=== PATIENT | female | born 1945 | race Caucasian/White ===

== ENCOUNTER → 2016-12-31 | Outpatient (CLI) | payer OTHER, BC | LOC: MMPC 11:11 | PROVIDERS: ATTEND Surgery | DX: C50.411 Malignant neoplasm of upper-outer quadrant of right female breast (principal) | CPT/HCPCS: 99213; G0463 ==

== ENCOUNTER 2017-01-02 10:43 | Day surgery (SDC) | payer OTHER, BC ==
[~2017-01-02 10:43] MED LIST: LIDOCAINE HCL 1%/EPI 1:100,000 - 20 ML VIAL ONE; LIDOCAINE W/ SODIUM BICARB 0.5 ML SYR ONE; Lactated Ringers 1,000 ML PRIMARY IV ONE; SODIUM BICARBONATE 8.4% - 50 ML VIAL ONE
[2017-01-02] MEDS ORDERED: fentaNYL Inj 100 MCG/2 ML VIAL ONE (11:28)
[2017-01-02] MEDS ORDERED: MIDAZOLAM 5 MG/1 ML ONE (11:28)
--- NOTE | 2017-01-02 12:30 | GEN.OPNOTE ---
Operative Note Surgery Date: 01/02/17 Preoperative Diagnosis: Right breast cancer. Mediport no longer needed. Postoperative Diagnosis: Same. Procedure: Removal left subclavian Mediport. Surgeon: Oleksandr Miller MD Anesthesia Provider: Felipe Ponce CRNA Anesthesia Type: Local (Oleksandr Miller. 1% Xylocaine with epinephrine and sodium bicarbonate.), MAC Estimated Blood Loss (mL): 2 Fluids: 600 mL of crystalloid. Pathology: No specimens. Indications: Mediport no longer needed. Patient is finish chemotherapy. Patient desires removal. Findings: No abnormal findings. Complications: None. Operative Summary: Patient was taken to the operating suite and placed on the operating table in the supine position. Following the induction of adequate IV sedation the area was infiltrated with 1% Xylocaine with epinephrine and bicarbonate. An incision was made at the old incision site. It was carried down through the subcutaneous tissue to the Mediport. The scar tissue around the MediPort was freed up. The catheter was identified. The scar tissue surrounding it was incised. Gentle traction allowed complete removal of the MediPort. Pressure was held at the incision site as well as the entrance site into the vein for 5 minutes. Hemostasis was assured. The deep dermis was closed with inverted interrupted 4-0 Monocryl sutures. The skin was closed with running subcuticular 4-0 Monocryl followed by Mastisol, Steri-Strips, and an appropriate dressing. The patient tolerated the procedure well. There were no complications. She was taken to outpatient surgery in stable condition. All counts were correct.
[2017-01-02 13:56] VITALS: RESP 14; TEMP 97
== END 2017-01-02 13:25 | disposition home or self-care (01) ==
LOC: SDSC 10:43
PROVIDERS: ATTEND Surgery
DX: Z95.828 Presence of other vascular implants and grafts (principal); C50.411 Malignant neoplasm of upper-outer quadrant of right female breast
CPT/HCPCS: 36590 ×2; J2704; J3010; J2250; J7120

== ENCOUNTER → 2017-01-04 | Outpatient (CLI) | payer OTHER, BC | LOC: LAB 13:17 | PROVIDERS: ATTEND Nurse Practitioner | DX: M81.0 Age-related osteoporosis without current pathological fracture (principal) | CPT/HCPCS: 36415; 82306 ==

== ENCOUNTER → 2017-02-11 | Outpatient (CLI) | payer OTHER, BC ==
[2017-02-11 14:33] LABS: BASOPHILS # (AUTO) 0.03 10*3/UL; BASOPHILS % (AUTO) 0.6 % (0-1); EOSINOPHILS % (AUTO) 2.6 % (0-8); HEMATOCRIT 38.8 % (37.0-47.0); HEMOGLOBIN 12.8 g/dL (12.0-16.0); IMM GRAN % (AUTO) 0.2 % (0-5); IMM GRAN# (AUTO) 0.01 10*3/UL; LYMPHOCYTES # (AUTO) 0.98 10*3/uL; MEAN CORPUSCULAR HEMOGLOBIN 27.5 PG (27-31); MEAN PLATELET VOLUME 9.3 FL (7.4-12.2); MONOCYTES # (AUTO) 0.52 10*3/UL (0.3-0.8); MONOCYTES % (AUTO) 10.6 % (5-15); NEUTROPHILS # (AUTO) 3.24 10*3/UL; RDW COEFFICIENT OF VARIATION 14.8 % (11.5-14.5); RED BLOOD COUNT 4.65 10^6/uL (4.20-5.40); WHITE BLOOD COUNT 4.91 10^3/uL (4.8-10.8)
[2017-02-11 14:34] LABS: PLATELET MORPHOLOGY COMMENT NORMAL MORPHOLOGY (NORM)
[2017-02-11 14:42] LABS: ASPARTATE AMINO TRANSFERASE 24 IU/L (8-39); BILIRUBIN,TOTAL 0.4 mg/dL (0.3-1.2); BLOOD UREA NITROGEN 18 mg/dL (7-22); CHLORIDE 107 meq/L (98-112); CREATININE 0.9 mg/dL (0.50-1.20); EST GLOMERULAR FILTRATION > 60 (>60 ml/min/1.73m(2)); GLUCOSE 115 mg/dL (78-110); SODIUM 141 meq/L (135-145); TOTAL PROTEIN 7.6 g/dL (6.1-8.0)
== END ==
LOC: LAB 14:22
PROVIDERS: ATTEND Internal Medicine
DX: C50.811 Malignant neoplasm of overlapping sites of right female breast (principal)
CPT/HCPCS: 36415; 80053; 85025; 86300

== ENCOUNTER 2018-03-18 10:32 | Inpatient (IN) ==
[~2018-03-18 10:32] MED LIST changes: -LIDOCAINE HCL 1%/EPI 1:100,000 - 20 ML VIAL ONE; +LIDOCAINE W/ SODIUM BICARB 0.5 ML SYR SUBD ONE; -SODIUM BICARBONATE 8.4% - 50 ML VIAL ONE; +ceFAZolin Inj 2gm (Premix) 2 GM/50 ML BAG IV ONE
[2018-03-18] MEDS ORDERED: MIDAZOLAM 5 MG/1 ML ONE (10:46)
[2018-03-18] MEDS ORDERED: fentaNYL Inj 250 MCG/5 ML VIAL ONE (10:46)
[2018-03-18] MEDS ORDERED: LIDOCAINE MPF 2% - 5 ML (20 MG/1 ML) ONE (10:47)
[2018-03-18] MEDS ORDERED: PROPOFOL 10 MG/1 ML (200 MG/20 ML) VIAL IV ONE (10:48)
[2018-03-18] MEDS: Lactated Ringers 1,000 ML PRIMARY IV SCH ×3 (10:53→18:56)
[2018-03-18] MEDS ORDERED: EPINEPHrine Inj (1:1,000) 1 mg/ml amp ONE (11:38)
--- NOTE | 2018-03-18 11:55 | CRNA.PROGR ---
Anesthesia Time - - Start date: 03/18/18 End date: 03/18/18 - Procedure/Recovery Time Anesthesia : Time In: 12:18 Anesthesia : Time Out: 15:17 Anesthesia : Total Time: 179 - Block Time PreOp Block : Time In: 12:03 PreOp Block : Time Out: 12:07 PreOp Block : Total Time: 4 - Total Anesthesia Time Total Anesthesia Time (minutes): 183 - Other Physical Status: P3 (aaortic stenosis, H/O PE, GERD,) Anesthesia Type: General Anesthesia : ET
[2018-03-18] MEDS ORDERED: ESMOLOL HCL 100 MG/10 ML VIAL ONE (12:15)
[2018-03-18] MEDS ORDERED: ROCURONIUM 10 MG/1 ML - 5 ML VIAL IVP ONE (12:16)
[2018-03-18] MEDS ORDERED: ePHEDrine Inj 50 MG/ML AMP ONE (12:43)
[2018-03-18] MEDS ORDERED: Sodium Chloride 0.9% vial 20 ML ONE ×2 (13:35→14:15)
[2018-03-18] MEDS ORDERED: BACITRACIN 50,000 UNIT VIAL IRRIG ONE ×2 (13:35→14:15)
[2018-03-18] MEDS ORDERED: Lactated Ringers 1,000 ML PRIMARY IV ONE (14:49)
--- NOTE | 2018-03-18 15:10 | ORTHO.OP ---
- - -: See Dictated Operative Report Procedure Codes - Upper Extremity Procedures Primary Wrist/Hand/Elbow Procedure Code: Other CPT Code(s) (35359 and 31006 Raysa ABDUL assisted)
--- NOTE | 2018-03-18 15:22 | CRNA.PROCE ---
Nerve Block Documentation - - Safety Measures: Time Out Taken, Site Verified - - Type of Nerve Block Used: Right Interscalene Block (Anaqlgesia block for post humeral nailing.) Position for Nerve Block: Supine Moniters Used During Block: EKG, SPO2, NIBP Oxygen Supplemented: Yes Sedation Used - Enter Amount in Comment Field [ANES.SEDAT]: Midazolam (mg): Yes (2), Fentanyl (mcg): Yes (100) Skin Prep Used: ChloroPrep (Twice) Technique: Nerve Stimulator Nerve Block Needle Used: 40 mm ProBlk II Stimulation Hz: 1 Stimulation Staring mA: 1.6 Stimulation Ending mA: 0.6 Local Anesthetic - Enter Amt in Comment Field [ANES.LOCNB]: 0.5 % Bupivacaine Plain (mL): Yes (20 ml), 2 % Xylocaine with Epinephrine 1:200,000 (mL): Yes (20 ml) Additives to Nerve Blocks: Dexamethasone (mg): Yes (10) - - PreOp Block : Time In: 12:03 PreOp Block : Time Out: 12:07 Anesthesia Time - Block Time PreOp Block : Time In: 12:03 PreOp Block : Time Out: 12:07 - Other Weight: 83.461 kg Height: 5 ft 4 in Body Mass Index (BMI): 31.6
--- NOTE | 2018-03-18 15:23 | CRNA.PROGR ---
Post Anesthesia Phase II - Post Anesthesia Phase II Patient Stable and Discharged To: Med/Surg Care Assumed By Surgeon: Primitivo Pena MD Temperature: 97.0 F Pulse Rate: 81 Respiratory Rate: 18 Blood Pressure: 127/59 Pulse Ox: 95 Total Onesimo Score at Discharge: 9 Post Anesthesia Discharge Criteria Met: Yes
--- NOTE | 2018-03-18 15:23 | CRNA.PROGR ---
Anesthesia Recovery Phase I - Post Anesthesia Evaluation Patient's Condition on Arrival in Phase I: Stable Patient's Condition on Arrival in Phase II: Stable Pain Level: 2
[2018-03-18] MEDS ORDERED: LIDOCAINE W/ SODIUM BICARB 0.5 ML SYR SUBD PRN (15:27)
[2018-03-18] MEDS ORDERED: Ondansetron ODT Tab 8 MG TAB PO PRN (15:27)
[2018-03-18] MEDS ORDERED: HYDROmorphone 2 MG/1 ML ONE (15:27)
[2018-03-18] MEDS ORDERED: NORMAL SALINE 10 ML SYRINGE FLUSH IVP PRN ×2 (15:27→16:00)
[2018-03-18] MEDS ORDERED: ATROPINE SULFATE 0.4 MG/1 ML VIAL IVP PRN (15:27)
[2018-03-18] MEDS ORDERED: fentaNYL Inj 100 MCG/2 ML VIAL IVP PRN (15:27)
[2018-03-18] MEDS ORDERED: ONDANSETRON 4 MG/2 ML VIAL IVP PRN ×2 (15:27→16:00)
[2018-03-18] MEDS: HYDROmorphone 2 MG/1 ML IVP PRN ×2 (15:28→15:40)
[2018-03-18] MEDS ORDERED: Lactated Ringers 1,000 ML PRIMARY IV SCH (15:30)
[2018-03-18] MEDS ORDERED: HYDROmorphone 2 MG/1 ML IVP PRN (16:00)
--- NOTE | 2018-03-18 16:59 | CONSULT ---
Consult Note - Consult Consult Date: 03/18/18 Reason for Consult: PostOp Consulation : Ortho Requesting Physician: Dr. Pena Primary Care Provider: Danyell Vela APRN HPI - History of Present Illness Date of Service: 03/18/18 Time of Service: 16:51 Chief Complaint: Right arm pain History of Present Illness: This very pleasant 72-year-old female with a history of breast cancer, stage III at time of diagnosis back in 2014, pulmonary emboli, and a heart murmur. She comes in stating that over the last 2 weeks or so she's had some right arm pain. She had a PET scan done and mentioned it to her oncology team and they thought perhaps she had a shoulder impingement. They sent her to Dr. Pena and he found a pathologic fracture. The patient had metastatic disease in her right humerus. She went to surgery today for open reduction and internal fixation of this and is now postop today. Because of the patient's pulmonary emboli in 2014, she has been on eliquis to try and prevent another event. I spoke to the patient about this, and also discussed Lovenox and its superiority data over Coumadin in the setting of venous thrombi embolism or pulmonary emboli but she states to me that she does not want to go on that. She had some experience with Lovenox shots with her prior diagnosis of pulmonary emboli. Patient would like to remain on her eliquis. Postoperatively, her pain is well controlled and her right arm. She has no chest pain, shortness breath, nausea or vomiting. She will be starting chemotherapy and radiation over the next week. Past Medical History Medical History: 1. Right-sided breast cancer, with metastatic disease now on the right arm, spine and hip. On tamoxifen. We'll be resuming chemotherapy and radiation therapy over this next week. 2. Pulmonary emboli. 3. History of aortic stenosis, mild Surgical History: 1. Right breast cancer surgery. 2. Mediport. and subsequent removal. Pertinent Family History: Her mother had leukemia. Father is alive at age 99. Past Social History: Does not smoke or drink. . Has healthy children. Tobacco Use: Never Smoker In the Past 12 Months, Have Used or Abuse Any of the Following Substance: None Alcohol Use: None Review of Systems - Constitutional Constitutional: REPORTS: Other (Denies any fevers or chills. Denies any weight loss.) - Respiratory Respiratory: REPORTS: Negative System Review - Cardiovascular Cardiovascular: REPORTS: Negative System Review - Gastrointestinal Gastrointestinal / Abdominal: REPORTS: Negative System Review - Genitourinary Genitourinary: REPORTS: Negative System Review - Musculoskeletal Musculoskeletal: REPORTS: Other (Pain in lower back.) Medication / Allergies Home Medications: Home Medications 3 Medication Instructions Recorded Confirmed Type Tamoxifen Citrate 20 mg PO DAILY tab 01/10/16 03/18/18 History Multivitamin [Daily Ralph] 1 tab PO DAILY tab 12/31/16 03/18/18 History escitalopram 10 mg tablet 1 tab PO DAILY #90 tab 01/21/18 03/18/18 Rx apixaban 5 mg tablet 5 mg PO QDAY #60 tab 03/03/18 03/18/18 Rx hydrocodone 5 mg-acetaminophen 325 See Label Instructions PO Q6-8H 03/06/18 Rx mg tablet PRN #50 tab Allergies/Adverse Reactions: Allergies 3 Allergy/AdvReac Type Severity Reaction Status Date / Time Auremycin Allergy Intermediate HIVES Uncoded 09/27/17 13:42 Limes AdvReac Mild NAUSEA Uncoded 09/27/17 13:42 Exam - Vitals Vital Signs: Vital Signs Temperature 96.8 F Temperature Source Temporal Artery Scan Pulse Rate [Pulse Oximeter] 108 Pulse Rate [Apical] 105 Pulse Rate 110 Respiratory Rate 16 Blood Pressure [Left Arm] 104/45 Blood Pressure 97/48 Pulse Ox 94 Oxygen Flow Rate 2 Oxygen Delivery Method Nasal Cannula Height 5 ft 4 in Weight 184 lb - General General Appearance: No Acute Distress, Cooperative - Head Head Exam: Normal Inspection, Normocephalic, Atraumatic - Eye Eye Exam: POSITIVE: No Scleral Icterus - ENT ENT Exam: POSITIVE: Mucous Membranes Moist - Respiratory Respiratory Exam: POSITIVE: Clear to Auscultation - Bilaterally, Breathing Non Labored - Cardiovascular Cardiovascular Exam: POSITIVE: RRR, No Clicks, No Gallops, No Rubs, Systolic Murmur, No JVD - GI/Abdominal GI/Abdominal Exam: POSITIVE: Normal Bowel Sounds, Non Tender, Non Distended, Soft - Extremities Extremities Exam: POSITIVE: No Clubbing Present, No Edema Present, No Cyanosis Present Additional Extremities Exam Details: Right upper extremity in sling. - Neurological Neurological Exam: POSITIVE: Alert, Oriented x 3, No Facial Droop, Speech Intact / Clear Results - Labs Additional Lab Results: 03/31/13 02/13/18 02/13/18 09:00 10:24 10:24 WBC 4.02 L Hgb 12.3 RDW 13.5 Plt Count 295 Sodium 145 Potassium 4.4 Chloride 107 Carbon Dioxide 24 Anion Gap 14 BUN 21 Creatinine 0.9 Glucose 94 Calcium 9.3 Total Bilirubin 0.4 AST 33 ALT 35 Alkaline Phosphatase 82 CA 27-29 02/13/18 10:24 WBC Hgb RDW Plt Count Sodium Potassium Chloride Carbon Dioxide Anion Gap BUN Creatinine Glucose Calcium Total Bilirubin AST ALT Alkaline Phosphatase CA 27-29 33.9 Assessment and Plan - Patient Problems (1) Aortic stenosis, mild Current Visit: Yes Status: Acute Code(s): I35.0 - Nonrheumatic aortic (valve ) stenosis (2) History of pulmonary embolism Current Visit: Yes Status: Acute Code(s): Z86.711 - Personal history of pulmonary embolism (3) Breast cancer, right Current Visit: Yes Status: Acute Priority: High Code(s): C50.911 - Malignant neoplasm of unspecified site of right female breast Qualifiers: Breast location: upper outer quadrant of breast Qualified Code(s): C50.411 - Malignant neoplasm of upper-outer quadrant of right female breast - Assessment / Plan Additional Assessment/Plan Details: In terms of aortic stenosis, continue home medications. At this point. One could consider getting an echocardiogram prior to chemotherapy, but as I do not know the regimen, I'll defer any ordering of this to her oncology team. In terms of her DVT/pulmonary embolism prophylaxis, I spoke with orthopedics regarding this issue. I think the patient can resume her eliquis tomorrow by the afternoon. It slated to start at 3 PM. She does take it twice a day and I' ll make sure that it's reflected as such in the chart. The patient may need brain imaging to make sure there is no brain metastases, but given the patient already had a pulmonary emboli in the setting of breast cancer, I think it's very important to continue to try to prevent another one. She does not want to go on Lovenox. Her was present for that discussion as well. We did discuss CODE STATUS. I went through this very carefully with the patient and her present. They both agree that the patient is DO NOT RESUSCITATE. She states she has power of trade mark attorney in place. Thank you for this consultation. We will continue to help advise and support medical issues throughout the hospital stay.
[2018-03-18] MEDS: HYDROcodone-APAP 7.5 MG-325 MG TABLET PO PRN ×2 (18:57→22:29)
[2018-03-18] MEDS: ceFAZolin Inj 2gm (Premix) 2 GM/50 ML BAG IV SCH (20:09)
[2018-03-18 23:58] VITALS: RESP 16
[2018-03-19] MEDS: HYDROcodone-APAP 7.5 MG-325 MG TABLET PO PRN ×3 (04:19→13:02)
[2018-03-19] MEDS: ceFAZolin Inj 2gm (Premix) 2 GM/50 ML BAG IV SCH (04:20)
[2018-03-19 04:40] LABS: BASOPHILS # (AUTO) 0.01 10*3/UL; BASOPHILS % (AUTO) 0.2 % (0-1); EOSINOPHILS # (AUTO) 0.03 10*3/UL; EOSINOPHILS % (AUTO) 0.5 % (0-8); Hematocrit [HCT] 30.8 % (37.0-47.0); Hemoglobin [HGB] 10.1 g/dL (12.0-16.0); LYMPHOCYTES # (AUTO) 1.23 10*3/uL; MEAN CORPUSCULAR HEMOGLOBIN 27.7 PG (27-31); MEAN CORPUSCULAR HGB CONC 32.8 g/dL (33-37); MEAN CORPUSCULAR VOLUME 84.6 FL (81-99); MEAN PLATELET VOLUME 9.1 FL (7.4-12.2); MONOCYTES # (AUTO) 0.57 10*3/UL (0.3-0.8); MONOCYTES % (AUTO) 8.6 % (5-15); NEUTROPHILS % (AUTO) 71.9 % (50-80); RED BLOOD COUNT 3.64 10^6/uL (4.20-5.40)
[2018-03-19 04:50] LABS: BLOOD UREA NITROGEN 15 mg/dL (7-22); BUN/CREATININE RATIO 18.75 (6-20)
[2018-03-19 04:54] LABS: PLATELET MORPHOLOGY COMMENT NORMAL MORPHOLOGY (NORM); RBC MORPHOLOGY COMMENT NORMAL MORPHOLOGY (NORM); WBC MORPHOLOGY COMMENT NORMAL MORPHOLOGY (NORM)
[2018-03-19] MEDS: Lactated Ringers 1,000 ML PRIMARY IV SCH (05:33)
--- NOTE | 2018-03-19 07:48 | ORTHO.PROG ---
Last Taken Vital Signs: Vital Signs - Last Taken Temperature 98.2 F 03/19/18 06:58 Pulse Rate 85 03/19/18 06:58 Respiratory Rate 16 03/19/18 06:58 Blood Pressure 100/41 03/19/18 06:58 Pulse Ox 91 03/19/18 06:58 Subjective: Patient notes pain in the arm but otherwise doing well Objective: Motor and sensory exam is nonfocal. Good pulses brisk refill dressings are all dried. Limited motion of the shoulder secondary to pain. Laboratory Results 03/19/18 03/19/18 Range/Units 04:34 04:34 WBC 6.66 (4.8-10.8) 10^3/uL RBC 3.64 L (4.20-5.40) 10^6/uL Hgb 10.1 L (12.0-16.0) g/dL Hct 30.8 L (37.0-47.0) % MCV 84.6 (81-99) FL MCH 27.7 (27-31) PG MCHC 32.8 L (33-37) g/dL RDW Std Deviation 45.8 (39-50) fL RDW Coeff of Arcadio 15.2 H (11.5-14.5) % Plt Count 287 (140-350) 10*3/uL MPV 9.1 (7.4-12.2) FL Immature Gran % (Auto) 0.3 (0-5) % Neut % (Auto) 71.9 (50-80) % Lymph % (Auto) 18.5 (10-50) % Garvin % (Auto) 8.6 (5-15) % Eos % (Auto) 0.5 (0-8) % Baso % (Auto) 0.2 (0-1) % Immature Gran # (Auto) 0.02 10*3/UL Neut # (Auto) 4.80 10*3/UL Lymph # (Auto) 1.23 10*3/uL Garvin # (Auto) 0.57 (0.3-0.8) 10*3/UL Eos # (Auto) 0.03 10*3/UL Baso # (Auto) 0.01 10*3/UL WBC Morphology Comment Normal morphology (NORM) Plt Morphology Comment Normal morphology (NORM) RBC Morph Comment Normal morphology (NORM) Sodium 139 (135-145) meq/L Potassium 3.9 (3.8-5.2) meq/L Chloride 101 (98-112) meq/L Carbon Dioxide 26 (23-33) meq/L Anion Gap 12 (5-20) BUN 15 (7-22) mg/dL Creatinine 0.8 (0.50-1.20) mg/dL BUN/Creatinine Ratio 18.75 (6-20) Glucose 97 (78-110) mg/dL Calculated Osmolality 288.0 (267-292) mOsm/kg Calcium 8.6 L (8.7-10.7) mg/dL Vital Signs (24 hrs) Temp Pulse Pulse Pulse Resp BP BP 03/19/18 06:58 98.2 F 85 16 100/41 03/19/18 04:39 98.2 F 86 16 107/47 03/19/18 00:58 03/18/18 23:57 97.6 F 89 16 100/50 03/18/18 20:30 97.0 F 111 H 20 120/55 03/18/18 17:40 98.6 F 107 H 17 88/43 03/18/18 17:00 98.4 F 102 H 17 101/42 03/18/18 16:14 96.8 F 105 H 108 H 16 104/45 03/18/18 15:56 97/48 03/18/18 15:54 110 H 0 L 03/18/18 15:52 109 H 10 L 03/18/18 15:50 98.0 F 100 16 113/60 03/18/18 15:48 108 H 21 03/18/18 15:46 98.0 F 109 H 18 116/61 03/18/18 15:44 107 H 9 L 116/61 03/18/18 15:42 109 H 12 03/18/18 15:40 111 H 0 L 122/68 03/18/18 15:38 110 H 14 03/18/18 15:36 110 H 12 131/71 03/18/18 15:34 98.1 F 110 H 18 131/71 03/18/18 15:32 112 H 15 03/18/18 15:30 97.9 F 117 H 20 137/75 03/18/18 15:28 115 H 23 03/18/18 15:26 97.7 F 113 H 20 141/74 03/18/18 15:24 117 H 19 141/74 03/18/18 15:23 97.0 F 81 18 127/59 03/18/18 15:22 118 H 58 H 03/18/18 15:20 97.8 F 122 H 20 132/79 18 15:18 123 H 34 H 03/18/18 15:16 97.8 F 122 H 24 124/77 03/18/18 15:14 125 H 03/18/18 15:13 123 H 03/18/18 10:42 97.0 F 81 18 127/59 Pulse Ox 03/19/18 06:58 91 03/19/18 04:39 95 18 00:58 93 03/18/18 23:57 94 03/18/18 20:30 95 18 17:40 96 03/18/18 17:00 96 03/18/18 16:14 94 03/18/18 15:56 03/18/18 15:54 96 18 15:52 96 03/18/18 15:50 96 18 15:48 97 18 15:46 95 18 15:44 96 18 15:42 96 18 15:40 97 18 15:38 97 18 15:36 97 18 15:34 96 18 15:32 97 18 15:30 99 18 15:28 99 18 15:26 98 18 15:24 98 18 15:23 95 18 15:22 98 18 15:20 98 18 15:18 94 18 15:16 97 18 15:14 96 18 15:13 18 10:42 95 Assessment: Right humeral nailing and biopsy right humerus with metastatic breast carcinoma Plan: Evaluation by occupational therapy for mobilization of shoulder and arm as well as mobilizing the patient. We'll see how she does this morning without if she is doing well we can consider discharging her hopefully some time today in the afternoon. I will recheck her this afternoon.
[2018-03-19] MEDS ORDERED: ESCITALOPRAM 10 MG TABLET PO SCH (09:00)
[2018-03-19] MEDS ORDERED: Apixaban 5 MG TABLET PO SCH ×2 (09:00→15:00)
[2018-03-19] MEDS ORDERED: TAMOXIFEN CITRATE 20 MG PO SCH (09:00)
[2018-03-19] MEDS ORDERED: Multivitamin Tab 1 TAB PO SCH (09:00)
[2018-03-19] MEDS ORDERED: CALCIUM CARBONATE 500 MG (TUMS) CHEWABLE TABLET PO PRN (11:23)
[2018-03-19 11:58] VITALS: BP 94/42; TEMP 97.6; O2SAT 92
--- NOTE | 2018-03-19 13:47 | DCSUMMARY ---
Hospitalization Summary Admit Date: 03/18/2018 Discharge Date: 03/19/18 Primary Diagnosis:: right humerus pathologic fracture. Secondary Diagnosis:: Metastatic breast cancer Hospital Course: This very pleasant 72-year-old female that was admitted for open reduction and internal fixation and bone biopsy of a right humeral midshaft fracture with tumor. This is metastatic breast cancer. Patient had surgery performed by Dr. Pena. See his note for further details of the procedure. Postprocedure, the hospital service was involved in the patient's care to help address history of prior pulmonary emboli, anticoagulant management, in the setting of the surgery. The patient is on Eliquis with her oncologist. I discussed with her that Lovenox may be the best drug of choice given that her cancer still present, but she does not want to go on Lovenox she prefers to stay on Eliquis. This was despite disclosure that Lovenox has superior clinical data versus Coumadin in prevention of blood clots (DVT/PE) in patients with malignancy. Postoperatively, the patient did well. Her pain was controlled with hydrocodone orally. She will be working with physical therapy as well. She will resume chemotherapy and a Mediport and radiation per oncology over this next week. No complaints of chest pain or shortness of breath. Assessment and Plan: 1. As per discharge assessments noted 2. Disposition: Patient is discharged home. 3. Condition on discharge, stable and improved. 4. Diet: regular diet 5. Activities: resume normal activities, with right arm restrictions and therapy as prescribed by orthopedics 6. Follow-Up: 1. Primary care provider in one week 2. 7. Medications at the Time of Discharge: Home Medications 3 Medication Instructions Recorded Confirmed Type Multivitamin [Daily Ralph] 1 tab PO DAILY tab 12/31/16 03/18/18 History escitalopram 10 mg tablet 1 tab PO DAILY #90 tab 01/21/18 03/18/18 Rx apixaban 5 mg tablet 5 mg PO QDAY #60 tab 03/03/18 03/18/18 Rx Hydrocodone/Acetaminophen See Label Instructions PO Q6H PRN 03/19/18 Rx [Hydrocodone-Acetamin 5-325 mg] #60 tab 8. Time, care, counseling and coordination of care for this discharge is less than 30 minutes. Exam - Vitals Vital Signs: Vital Signs Temperature 97.6 F Temperature Source Temporal Artery Scan Pulse Rate [Pulse Oximeter] 80 Pulse Rate [Apical] 105 Pulse Rate 110 Respiratory Rate 16 Blood Pressure [Left Arm] 94/42 Blood Pressure 97/48 Pulse Ox 92 Oxygen Flow Rate 2 Oxygen Delivery Method Room Air Height 5 ft 4 in Weight 188 lb 3 oz - General General Appearance: No Acute Distress, Cooperative - Eye Eye Exam: POSITIVE: No Scleral Icterus - ENT ENT Exam: POSITIVE: Mucous Membranes Moist - Respiratory Respiratory Exam: POSITIVE: Clear to Auscultation - Bilaterally, Breathing Non Labored - Cardiovascular Cardiovascular Exam: POSITIVE: RRR, No Murmur, No Clicks, No Gallops, No Rubs, No JVD - GI/Abdominal GI/Abdominal Exam: POSITIVE: Normal Bowel Sounds, Non Tender, Non Distended, Soft - Extremities Extremities Exam: POSITIVE: No Clubbing Present, No Edema Present, No Cyanosis Present Additional Extremities Exam Details: Right arm in sling, slightly more movement today than yesterday. - Neurological Neurological Exam: POSITIVE: Alert, Oriented x 3, No Facial Droop, Speech Intact / Clear Data Peritnent Studies: Laboratory Results 03/19/18 03/19/18 Range/Units 04:34 04:34 WBC 6.66 (4.8-10.8) 10^3/uL RBC 3.64 L (4.20-5.40) 10^6/uL Hgb 10.1 L (12.0-16.0) g/dL Hct 30.8 L (37.0-47.0) % MCV 84.6 (81-99) FL MCH 27.7 (27-31) PG MCHC 32.8 L (33-37) g/dL RDW Std Deviation 45.8 (39-50) fL RDW Coeff of Arcadio 15.2 H (11.5-14.5) % Plt Count 287 (140-350) 10*3/uL MPV 9.1 (7.4-12.2) FL Immature Gran % (Auto) 0.3 (0-5) % Neut % (Auto) 71.9 (50-80) % Lymph % (Auto) 18.5 (10-50) % Lake % (Auto) 8.6 (5-15) % Eos % (Auto) 0.5 (0-8) % Baso % (Auto) 0.2 (0-1) % Immature Gran # (Auto) 0.02 10*3/UL Neut # (Auto) 4.80 10*3/UL Lymph # (Auto) 1.23 10*3/uL [place] # (Auto) 0.57 (0.3-0.8) 10*3/UL Eos # (Auto) 0.03 10*3/UL Baso # (Auto) 0.01 10*3/UL WBC Morphology Comment Normal morphology (NORM) Plt Morphology Comment Normal morphology (NORM) RBC Morph Comment Normal morphology (NORM) Sodium 139 (135-145) meq/L Potassium 3.9 (3.8-5.2) meq/L Chloride 101 (98-112) meq/L Carbon Dioxide 26 (23-33) meq/L Anion Gap 12 (5-20) BUN 15 (7-22) mg/dL Creatinine 0.8 (0.50-1.20) mg/dL BUN/Creatinine Ratio 18.75 (6-20) Glucose 97 (78-110) mg/dL Calculated Osmolality 288.0 (267-292) mOsm/kg Calcium 8.6 L (8.7-10.7) mg/dL Patient Problems - Patient Problem List (1) Humerus fracture Current Visit: Yes Status: Acute Comment: Status post ORIF Code(s): S42.309A - Unspecified fracture of shaft of humerus, unspecified arm, initial encounter for closed fracture Qualifiers: Encounter type: initial encounter Humerus Location: shaft Fracture type: closed Fracture morphology: transverse Fracture alignment: nondisplaced Laterality: right Qualified Code(s): S42.324A - Nondisplaced transverse fracture of shaft of humerus, right arm, initial encounter for closed fracture Category: Medical (2) Aortic stenosis, mild Current Visit: Yes Status: Acute Comment: The patient should eventually meet with cardiology and do repeat echocardiogram in the future Code(s): I35.0 - Nonrheumatic aortic (valve) stenosis Category: Medical (3) History of pulmonary embolism Current Visit: Yes Status: Acute Code(s): Z86.711 - Personal history of pulmonary embolism Category: Medical (4) Breast cancer, right Current Visit: Yes Status: Acute Priority: High Comment: Stable status post right modified radical mastectomy. Doing well postop. Code(s): C50.911 - Malignant neoplasm of unspecified site of right female breast Qualifiers: Breast location: upper outer quadrant of breast Qualified Code(s): C50.411 - Malignant neoplasm of upper-outer quadrant of right female breast Category: Medical
--- NOTE | 2018-03-22 11:19 | OTI REPORT ---
Thank you for the referral of Andie Curiel. She was seen on 03/19/18 for an occupational therapy inpatient evaluation status post right humeral nailing. SUBJECTIVE: The patient is a 72-year-old female. The patient reports she is feeling well this afternoon and she is ready to return home. PAST MEDICAL HISTORY: Past medical history can be found in the patient's medical record. OBJECTIVE FINDINGS: The patient was fitted with a sling appropriately. She did require the sling to be sized slightly smaller. The patient was educated in passive range of motion activities to complete at home including pendulums per Dr. Pena. The patient also completed lower extremity dressing tasks independently and upper extremity dressing tasks with moderate assistance due to needing support with the right arm. Overall the patient's pain is okay at this time. The patient did ambulate x30 feet with contact guard assist for safety. ASSESSMENT: Problem List: Limited use of the right upper extremity Short-Term Goals: To be met by discharge from inpatient: Patient will demonstrate safety with functional mobility tasks. Patient will demonstrate the ability to don and doff sling independently. Long-Term Goals: To be met following discharge from inpatient: Patient will be seen by outpatient therapy related to the right humeral nailing. TREATMENT PLAN: Patient is being discharged. INITIAL TREATMENT: Treatment today consisted of the initial evaluation followed by education and adjustment of sling. JUANA
== END 2018-03-19 15:00 | disposition home or self-care (01) | DRG 478 ==
LOC: OPS 10:32 → MED/SURG 15:54
PROVIDERS: ADMIT Orthopaedic Surgery; ATTEND Orthopaedic Surgery